=== PATIENT | female | born 1995 | race African-American/Black ===

== ENCOUNTER 2016-12-17 16:40 | Emergency (ER) | payer MEDICAID ==
[~2016-12-17] VITALS: Ht 165.1 cm; Wt 67.0 kg
[2016-12-17 22:40] LABS: CLARITY URINE CLEAR (CLEAR); COLOR URINE YELLOW (YELLOW); GLUCOSE URINE NEGATIVE (NEGATIVE); KETONES URINE NEGATIVE (NEGATIVE); LEUKOCYTE ESTERASE URINE 1+ (NEGATIVE); NITRITE URINE NEGATIVE (NEGATIVE); OCCULT BLOOD URINE NEGATIVE (NEGATIVE); PROTEIN URINE TRACE (NEGATIVE); SPECIFIC GRAVITY URINE 1.018 (1.005-1.030); UROBILINOGEN URINE 0.2 E.U./dL (0.2-1.0)
[2016-12-18 00:30] VITALS: BP 106/74
== END 2016-12-18 00:30 | disposition home or self-care (01) ==
LOC: ER 22:07
DX: N76.0 Acute vaginitis (principal); E05.90 Thyrotoxicosis, unspecified without thyrotoxic crisis or storm
CPT/HCPCS: 81001; 81025; 87210; 87491; 87591; 99284